=== PATIENT | female | born 2000 | race Asian ===

== ENCOUNTER 2023-03-03 13:04 | Emergency (ER) | payer OTHER ==
[~2023-03-03] VITALS: Ht 157.5 cm; Wt 66.2 kg
[2023-03-03 13:10] VITALS: BP 123/64; TEMP 97.5
== END 2023-03-03 15:02 | disposition home or self-care (01) ==
LOC: ED 13:04
DX: J02.9 Acute pharyngitis, unspecified (principal); F17.210 Nicotine dependence, cigarettes, uncomplicated
CPT/HCPCS: 87651; 99282

== ENCOUNTER 2023-06-07 17:15 | Emergency (ER) | payer OTHER ==
[~2023-06-07] VITALS: Ht 157.5 cm; Wt 65.8 kg
[2023-06-07 17:27] VITALS: TEMP 98.7
[2023-06-07 20:05] VITALS: BP 114/67
== END 2023-06-07 20:05 | disposition home or self-care (01) ==
LOC: ED 17:15
DX: J01.90 Acute sinusitis, unspecified (principal); B97.89 Other viral agents as the cause of diseases classified elsewhere; R51.9 Headache, unspecified
CPT/HCPCS: 81025; 87635; 87651; 99283; U0003